=== PATIENT | male | born 1985 | race Two or more races ===

== ENCOUNTER 2018-03-31 05:16 | Emergency (ER) | payer SELFPAY ==
[~2018-03-31] VITALS: Ht 180.3 cm; Wt 89.8 kg
[~2018-03-31 05:16] MED LIST: ERYT1OIN6 OS
--- NOTE | 2018-03-31 05:23 | ED.ADGEN ---
Past History Past Medical History: No Pertinent History Past Surgical History: No Surgical History Alcohol Use: Rarely Drug Use: None Adult General Chief Complaint Chief Complaint " I got a really sore throat.. It been going on a couple days... I..am up here visiting my mom.. and it got so bad .. I had to come in..." HPI HPI Patient is a 32 year old male who presents with above hx and complaints of sore throat. No history of specific ill contacts. Recent travel from [place]. Patient denies any history of immunosuppression. Patient up-to-date with vaccinations. Patient is normally healthy. Review of Systems Review of Systems Constitutional: Denies fever or chills [] Eyes: Denies change in visual acuity, redness, or eye pain [] HENT: History of pharyngitis/sore throat [] Respiratory: Denies cough or shortness of breath [] Cardiovascular: No additional information not addressed in HPI [] GI: Denies abdominal pain, nausea, vomiting, bloody stools or diarrhea [] : Denies dysuria or hematuria [] Musculoskeletal: Denies back pain or joint pain [] Integument: Denies rash or skin lesions [] Neurologic: Denies headache, focal weakness or sensory changes [] Endocrine: Denies polyuria or polydipsia [] All other systems were reviewed and found to be within normal limits, except as documented in this note. Family History Family History Noncontributory Current Medications Current Medications Current Medications Medications (Trade) Dose Ordered Sig/Magan Start Time Stop Time Status Last Admin Dose Admin Ibuprofen (Motrin) 400 mg 1X ONCE 03/31/18 06:00 03/31/18 06:00 DC 03/31/18 05:49 400 MG Prednisone (Prednisone) 60 mg 1X ONCE 03/31/18 06:00 03/31/18 06:00 DC 03/31/18 05:49 60 MG See nursing for home meds Allergies Allergies Allergies Coded Allergies Type Severity Reaction Last Updated Verified No Known Drug Allergies 07/01/16 No Physical Exam Physical Exam Constitutional: Well developed, well nourished, moderately acute distress, non- toxic appearance. [] HENT: Normocephalic, atraumatic, bilateral external ears normal, oropharynx moist, injected pharynx no oral exudates, nose normal. [] Eyes: PERRLA, EOMI, conjunctiva normal, no discharge. [] Neck: Normal range of motion, no tenderness, supple, no stridor. [] Cardiovascular:Heart rate regular rhythm, no murmur [] Lungs & Thorax: Bilateral breath sounds clear to auscultation [] Abdomen: Bowel sounds normal, soft, no tenderness, no masses, no pulsatile masses. [] Skin: Warm, dry, no erythema, no rash. [] Back: No tenderness, no CVA tenderness. [] Extremities: No tenderness, no cyanosis, no clubbing, ROM intact, no edema. [] Neurologic: Alert and oriented X 3, normal motor function, normal sensory function, no focal deficits noted. [] Psychologic: Affect anxious, judgement normal, mood normal. [] Current Patient Data Vital Signs Vital Signs Date Time Temp Pulse Resp B/P (MAP) Pulse Ox O2 Delivery O2 Flow Rate FiO2 03/31/18 05:40 101.7 91 20 98 Room Air Lab Results Laboratory Tests Test 03/31/18 05:20 Group A Streptococcus Rapid Negative (NEGATIVE) EKG EKG [] Radiology/Procedures Radiology/Procedures [] Course & Med Decision Making Course & Med Decision Making Pertinent Labs and Imaging studies reviewed. (See chart for details). Gargle with Listerine 4 times a day or warm saltwater. Liquid Benadryl 25 mg up to 4 times a day may be helpful. Take Tylenol and ibuprofen as needed for pain. Follow-up primary care. Return if any concerns. Vicoprofen for marked pain. [] Final Impression Final Impression 1. Pharyngitis[] 2. Viral Syndrome Dragon Disclaimer Dragon Disclaimer This electronic medical record was generated, in whole or in part, using a voice recognition dictation system. ADELA GUTHRIE MD March 31, 2018 05:23
[2018-03-31] MEDS ORDERED: HYDR-79 PO (05:38)
[2018-03-31 05:40] VITALS: BP 128/80
[2018-03-31] MEDS ORDERED: predniSONE 20 MG TABLET PO ONE (06:00)
[2018-03-31] MEDS ORDERED: IBUPROFEN 400 MG TABLET. PO ONE (06:00)
== END 2018-03-31 05:50 | disposition home or self-care (01) ==
LOC: ER 05:16
DX: B34.9 Viral infection, unspecified (principal)
CPT/HCPCS: 87070; 87880; 99283; J7512

== ENCOUNTER 2018-12-19 23:49 | Emergency (ER) | payer SELFPAY ==
[~2018-12-19] VITALS: Ht 180.3 cm; Wt 90.7 kg
[~2018-12-19 23:49] MED LIST changes: +HYDR-1179 PO
[2018-12-20] MEDS ORDERED: diphenhydrAMINE 50 MG/ML VIAL IVP ONE
[2018-12-20] MEDS ORDERED: HALOPERIDOL LACT 5 MG/ML VIAL. IVP ONE
[2018-12-20 00:07] VITALS: BP 119/62
[2018-12-20] MEDS ORDERED: PRED20TA PO (00:26)
[2018-12-20] MEDS ORDERED: AMOX500C PO (00:26)
[2018-12-20] MEDS ORDERED: PROM118S5 PO (00:26)
[2018-12-20] MEDS ORDERED: ALBUTEROL SULFATE 2.5 MG/3 ML NEBU. NEB ONE (00:30)
--- NOTE | 2018-12-20 00:31 | PHYS DOC ---
Adult General Chief Complaint Chief Complaint Cough HPI HPI 33 years old male presented to the emergency department with cough, headache, fever for 1 week, exertional shortness breath no chest pain no abdominal pain no nausea no vomiting no diarrhea Review of Systems Review of Systems Eyes: Denies change in visual acuity, redness, or eye pain [] HENT: Denies nasal congestion or sore throat [] Respiratory: Denies cough ] Cardiovascular: No additional information not addressed in HPI [] GI: Denies abdominal pain, nausea, vomiting, bloody stools or diarrhea [] : Denies dysuria or hematuria [] Musculoskeletal: Denies back pain or joint pain [] Integument: Denies rash or skin lesions [] Neurologic: Denies headache, focal weakness or sensory changes [] Endocrine: Denies polyuria or polydipsia [] All other systems were reviewed and found to be within normal limits, except as documented in this note. Current Medications Current Medications Current Medications Medications (Trade) Dose Ordered Sig/Magan Start Time Stop Time Status Last Admin Dose Admin Albuterol Sulfate (Ventolin) 2.5 mg 1X ONCE 12/20/18 00:30 12/20/18 00:31 UNV Diphenhydramine HCl (Benadryl) 25 mg 1X ONCE 12/20/18 00:00 12/20/18 00:00 DC Haloperidol Lactate (Haldol) 2 mg 1X ONCE 12/20/18 00:00 12/20/18 00:00 DC Prednisone (Prednisone) 60 mg 1X ONCE 12/20/18 00:30 12/20/18 00:31 UNV Promethazine HCl/ Codeine (Phenergan With Codeine Oral Syrup) 5 ml 1X STAT 12/20/18 00:24 12/20/18 00:25 UNV Allergies Allergies Allergies Coded Allergies Type Severity Reaction Last Updated Verified No Known Drug Allergies 07/01/16 No Physical Exam Physical Exam Constitutional: Well developed, well nourished, no acute distress, non-toxic appearance. [] HENT: Normocephalic, atraumatic, bilateral external ears normal, oropharynx moist, no oral exudates, nose normal. [] Eyes: PERRLA, EOMI, conjunctiva normal, no discharge. [] Neck: Normal range of motion, no tenderness, supple, no stridor. [] Cardiovascular:Heart rate regular rhythm, no murmur [] Lungs & Thorax: Bilateral breath sounds clear to auscultation [] Abdomen: Bowel sounds normal, soft, no tenderness, no masses, no pulsatile masses. [] Skin: Warm, dry, no erythema, no rash. [] Back: No tenderness, no CVA tenderness. [] Extremities: No tenderness, no cyanosis, no clubbing, ROM intact, no edema. [] Neurologic: Alert and oriented X 3, normal motor function, normal sensory function, no focal deficits noted. [] Psychologic: Affect normal, judgement normal, mood normal. [] Current Patient Data Vital Signs Vital Signs Date Time Temp Pulse Resp B/P (MAP) Pulse Ox O2 Delivery O2 Flow Rate FiO2 12/20/18 00:07 98.2 60 18 95 Room Air EKG EKG [] Radiology/Procedures Radiology/Procedures [] Course & Med Decision Making Course & Med Decision Making Pertinent Labs and Imaging studies reviewed. (See chart for details) [] Final Impression Final Impression [] Problems: (1) Bronchitis Dragon Disclaimer Dragon Disclaimer This electronic medical record was generated, in whole or in part, using a voice recognition dictation system. KIMI WAYNE MD Dec 20, 2018 00:31
[2018-12-20] MEDS ORDERED: PROMETH/CODEINE 6.25/10MG 5 ML SYRUP. PO ONE (01:00)
[2018-12-20] MEDS ORDERED: predniSONE 20 MG TABLET PO ONE (01:00)
== END 2018-12-20 00:44 | disposition home or self-care (01) ==
LOC: ER 23:49
DX: J40 Bronchitis, not specified as acute or chronic (principal)
CPT/HCPCS: 94640; 99283; J7512; J7613; 80053; 80307; 85025; G0480